=== PATIENT | female | born 1945 | race Hispanic/Latino ===

== ENCOUNTER → 2017-02-28 | Outpatient (CLI) | payer MEDICARE | END | disposition home or self-care (01) | LOC: SHCH 08:13 | PROVIDERS: ATTEND Internal Medicine Cardiovascular Disease | DX: R07.9 Chest pain, unspecified (principal) | CPT/HCPCS: 93306 ==

== ENCOUNTER → 2017-03-03 | Outpatient (CLI) | payer MEDICARE ==
[~2017-03-03] MED LIST: REGADENOSON 0.4 MG/5 ML PF SYG IVP SCH
== END | disposition home or self-care (01) ==
LOC: SHCH 09:10
PROVIDERS: ATTEND Internal Medicine Cardiovascular Disease
DX: R07.9 Chest pain, unspecified (principal); R00.0 Tachycardia, unspecified; R11.0 Nausea
CPT/HCPCS: 78452; 93017; 96374; A9500 ×2; J2785

== ENCOUNTER → 2017-04-22 | Outpatient (CLI) | payer OTHER | END | disposition home or self-care (01) | LOC: OIH 10:43 | PROVIDERS: ATTEND Internal Medicine Cardiovascular Disease | DX: Z13.6 Encounter for screening for cardiovascular disorders (principal) | CPT/HCPCS: 75571 ==

== ENCOUNTER → 2019-08-07 | Outpatient (CLI) | payer MEDICARE, OTHER | END | disposition home or self-care (01) | LOC: RAH 10:28 | PROVIDERS: ATTEND Internal Medicine | DX: M47.817 Spondylosis without myelopathy or radiculopathy, lumbosacral region (principal); M16.0 Bilateral primary osteoarthritis of hip | CPT/HCPCS: 72100; 72170 ==

== ENCOUNTER → 2020-07-03 | Outpatient (CLI) | payer MEDICARE | END | disposition home or self-care (01) | LOC: RAH 08:34 | PROVIDERS: ATTEND Internal Medicine | DX: K76.9 Liver disease, unspecified (principal) | CPT/HCPCS: 76705 ==

== ENCOUNTER → 2022-12-28 | Outpatient (CLI) | payer MEDICARE | END | disposition home or self-care (01) | LOC: SHCH 15:13 | PROVIDERS: ATTEND Internal Medicine Cardiovascular Disease | DX: I11.9 Hypertensive heart disease without heart failure (principal); R00.2 Palpitations; E78.5 Hyperlipidemia, unspecified; E11.9 Type 2 diabetes mellitus without complications | CPT/HCPCS: 93306 ==

== ENCOUNTER → 2023-04-04 | Outpatient (CLI) | payer MEDICARE | END | disposition home or self-care (01) | LOC: RAH 16:07 | PROVIDERS: ATTEND Clinical Nurse Specialist Family Health | DX: M25.711 Osteophyte, right shoulder (principal); M25.511 Pain in right shoulder | CPT/HCPCS: 73030 ==